=== PATIENT | male | born 1970 | race Two or more races ===

== ENCOUNTER 2017-02-19 17:53 | Emergency (ER) | payer MEDICAID | END 2017-02-19 19:47 | disposition home or self-care (01) | LOC: ED 17:53 | DX: B02.9 Zoster without complications (principal) ==

== ENCOUNTER 2017-02-22 09:10 | Emergency (ER) | payer MEDICAID | END 2017-02-22 10:00 | disposition home or self-care (01) | LOC: ED 09:10 | DX: B02.9 Zoster without complications (principal) ==